=== PATIENT | male | born 1950 | race Caucasian/White ===

== ENCOUNTER 2019-04-11 08:58 | Emergency (ER) | payer OTHER ==
[2019-04-11] MEDS ORDERED: Carvedilol 25 MG Tab PO ONE ×2 (09:36→09:37)
--- NOTE | 2019-04-11 09:40 | EDM.PDOC ---
ED HPI GENERAL MEDICAL PROBLEM - General Chief Complaint: General Stated Complaint: BECAME WEAK LIGHT HEADED NAUSA Time Seen by Provider: 04/11/19 09:20 Source of Information: Reports: Patient History Limitations: Reports: No Limitations - History of Present Illness INITIAL COMMENTS - FREE TEXT/NARRATIVE: 68-year-old male with known congestive heart failure and chronic atrial fibrillation, has a pacemaker defibrillator and [facility] and [facility]. He is under a lot of stress right now, he was packing and preparing to go down to [facility] for a consultation regarding his 's pancreatic cancer, lifted 50 pound bag of dog food and after carrying it in setting it down and became very lightheaded and short of breath for several minutes. After 45 minutes he was still feeling a little "woozy" so decided to get checked out before leaving town. No fevers or chills, no pain, no amnesia or loss of consciousness. No significant palpitations. - Related Data Allergies Allergy/AdvReac Type Severity Reaction Status Date / Time No Known Allergies Allergy Verified 04/11/19 09:07 Home Meds: Home Meds Amiodarone HCl [Pacerone] 200 mg PO DAILY 04/11/19 [History] Apixaban [Eliquis] 5 mg PO DAILY 04/11/19 [History] Aspirin 81 mg PO DAILY 04/11/19 [History] Carvedilol 50 mg PO BID 04/11/19 [History] Cholecalciferol (Vitamin D3) [Vitamin D3] 1,000 unit PO DAILY 04/11/19 [History] Fish Oil/[place]-3 Fatty Acids [Fish Oil 1,000 MG] 1 gm PO DAILY 04/11/19 [History ] Furosemide 80 mg PO DAILY 04/11/19 [History] Furosemide [Lasix] 40 mg PO BEDTIME 04/11/19 [History] Magnesium 400 mg PO ASDIRECTED 04/11/19 [History] Omeprazole 40 mg PO BID 04/11/19 [History] Sacubitril/Valsartan [Entresto 24 mg-26 mg Tablet] 1 tab PO BID 04/11/19 [ History] Sertraline HCl 100 mg PO DAILY 04/11/19 [History] Spironolactone [Aldactone] 50 mg PO DAILY 04/11/19 [History] atorvaSTATin [Lipitor] 20 mg PO BEDTIME 04/11/19 [History] Social & Family History - Tobacco Use Smoking Status *Q: Heavy Tobacco Smoker Years of Tobacco use: 50 Packs/Tins Daily: 0.2 - Caffeine Use Caffeine Use: Reports: Coffee - Recreational Drug Use Recreational Drug Use: No ED ROS GENERAL - Review of Systems Review Of Systems: See Below Constitutional: Denies: Chills HEENT: Denies: Vision Change Respiratory: Reports: Shortness of Breath Cardiovascular: Reports: Lightheadedness. Denies: Chest Pain, Palpitations Endocrine: Reports: Fatigue GI/Abdominal: Reports: Nausea. Denies: Abdominal Pain, Vomiting : Reports: No Symptoms Skin: Reports: No Symptoms Neurological: Reports: Dizziness. Denies: Headache ED EXAM, GENERAL - Physical Exam Exam: See Below Exam Limited By: Intoxication General Appearance: Alert, No Apparent Distress Eye Exam: Bilateral Eye: Normal Inspection Respiratory/Chest: No Respiratory Distress, Lungs Clear Cardiovascular: Regular Rate, Rhythm, Extra Beats (Occasional ectopic beats heard correlating with PVCs on the monitor) GI/Abdominal: Soft, Non-Tender Extremities: Normal Inspection. No: Pedal Edema Neurological: Alert, Oriented, No Motor/Sensory Deficits Psychiatric: Normal Affect, Normal Mood Skin Exam: Warm, Dry Course - Vital Signs Last Recorded V/S: Last Vital Signs Temp 97 F 04/11/19 09:06 Pulse 62 04/11/19 09:49 Resp 17 04/11/19 09:06 BP 129/64 04/11/19 09:49 Pulse Ox 97 04/11/19 09:06 - Orders/Labs/Meds Meds: Medications Discontinued Medications Generic Name Dose Route Start Last Admin Trade Name Diego PRN Reason Stop Dose Admin Carvedilol 25 mg 04/11/19 09:36 04/11/19 09:49 Coreg PO 04/11/19 09:37 25 mg ONETIME ONE Administration Carvedilol 25 mg 04/11/19 09:37 04/11/19 09:49 Coreg PO 04/11/19 09:38 25 mg ONETIME ONE Administration - Re-Assessments/Exams Free Text/Narrative Re-Assessment/Exam: 04/11/19 09:38 Patient was placed on laboratory monitor for 15 minutes and is in a sinus rhythm with occasional PVCs. Explaining her syncopal episodes due to increased chest pressure from carrying heavy objects, and the likelihood that this was the event. With his recent complete cardiac workup including echocardiogram no workup necessary at this time. He did run out of his carvedilol 2 days ago so he was given 50 mg orally prior to discharge. He is normally on 50 mg twice daily. He is hoping this will come in the mail today before he leaves for the [facility] for his 's referral. Departure - Departure Time of Disposition: 09:53 Disposition: Home, Self-Care 01 Condition: Good Clinical Impression: Vasovagal near-syncope - Discharge Information Instructions: Near-Syncope Referrals: Maribel Kimball MD [Primary Care Provider] - Forms: ED Department Discharge Care Plan Goals: Continue your current medications. Recheck at any time if symptoms are recurring and persistent.
== END 2019-04-11 09:53 | disposition home or self-care (01) ==
LOC: JP.ED 08:58
DX: R55 Syncope and collapse (principal); I50.9 Heart failure, unspecified; I48.2 Chronic atrial fibrillation; F17.210 Nicotine dependence, cigarettes, uncomplicated; Z95.0 Presence of cardiac pacemaker; Z79.899 Other long term (current) drug therapy; Z79.01 Long term (current) use of anticoagulants; Z79.82 Long term (current) use of aspirin
CPT/HCPCS: 99283; A9270

== ENCOUNTER 2019-05-20 16:03 | Emergency (ER) | payer OTHER ==
--- NOTE | 2019-05-20 16:57 | EDM.PDOC ---
<Crescencio Mitchell - Last Filed: 05/20/19 18:46> ED HPI GENERAL MEDICAL PROBLEM - General Chief Complaint: General Stated Complaint: FALL Time Seen by Provider: 05/20/19 18:06 - Related Data Allergies Allergy/AdvReac Type Severity Reaction Status Date / Time No Known Allergies Allergy Verified 05/20/19 16:44 Home Meds: Home Meds Amiodarone HCl [Pacerone] 200 mg PO DAILY 04/11/19 [History] Apixaban [Eliquis] 5 mg PO BID 04/11/19 [History] Aspirin 81 mg PO DAILY 04/11/19 [History] Carvedilol 50 mg PO DAILY 04/11/19 [History] Cholecalciferol (Vitamin D3) [Vitamin D3] 1,000 unit PO DAILY 04/11/19 [History] Fish Oil/[place]-3 Fatty Acids [Fish Oil 1,000 MG] 1 gm PO DAILY 04/11/19 [History ] Furosemide 100 mg PO DAILY 04/11/19 [History] Furosemide [Lasix] 50 mg PO BEDTIME 04/11/19 [History] Magnesium 400 mg PO ASDIRECTED 04/11/19 [History] Omeprazole 40 mg PO BID 04/11/19 [History] Sacubitril/Valsartan [Entresto 24 mg-26 mg Tablet] 1 tab PO BID 04/11/19 [ History] Sertraline HCl 100 mg PO DAILY 04/11/19 [History] Spironolactone [Aldactone] 100 mg PO BID 04/11/19 [History] Course - Vital Signs Last Recorded V/S: Last Vital Signs Temp 35.9 C 05/20/19 16:50 Pulse 59 L 05/20/19 18:34 Resp 12 05/20/19 18:34 BP 136/76 05/20/19 18:34 Pulse Ox 98 05/20/19 18:34 - Orders/Labs/Meds Labs: Laboratory Tests 05/20/19 05/20/19 05/20/19 Range/Units 17:32 17:32 17:32 WBC 7.4 (4.5-11.0) K/uL RBC 3.95 L (4.30-5.90) M/uL Hgb 11.9 L (12.0-15.0) g/dL Hct 37.3 L (40.0-54.0) % MCV 94 (80-98) fL MCH 30 (27-31) pg MCHC 32 (32-36) % Plt Count 111 L (150-400) K/uL Neut % (Auto) 74 H (36-66) % Lymph % (Auto) 14 L (24-44) % [place] % (Auto) 9 H (2-6) % Eos % (Auto) 3 (2-4) % Baso % (Auto) 1 (0-1) % PT 10.9 (9.5-12.0) sec INR 1.01 (0.80-1.20) Sodium 135 L (140-148) mmol/L Potassium 4.2 (3.6-5.2) mmol/L Chloride 99 L (100-108) mmol/L Carbon Dioxide 26 (21-32) mmol/L Anion Gap 14.2 H (5.0-14.0) mmol/L BUN 14 (7-18) mg/dL Creatinine 1.3 (0.8-1.3) mg/dL Est Cr Clr Drug Dosing 50.42 mL/min Estimated GFR (MDRD) 54 L (>60) Glucose 84 (74-106) mg/dL Calcium 8.8 (8.5-10.1) mg/dL - Radiology Interpretation Free Text/Narrative:: CT head-neg CT facial bones-L infraorbital blow out fx without entrapment, possible nasal fx CT Results Date: 05/20/19 Departure - Departure Time of Disposition: 18:55 Disposition: Home, Self-Care 01 Clinical Impression: Diplopia Head injury Qualifiers: Encounter type: initial encounter Qualified Code(s): S09.90XA - Unspecified injury of head, initial encounter Fall Qualifiers: Encounter type: initial encounter Qualified Code(s): W19.XXXA - Unspecified fall, initial encounter Orbital floor fracture Qualifiers: Encounter type: initial encounter Fracture type: closed Laterality: left Qualified Code(s): S02.32XA - Fracture of orbital floor, left side, initial encounter for closed fracture Clinical Impression: (Ruled Out): Maxillary fracture - Discharge Information *PRESCRIPTION DRUG MONITORING PROGRAM REVIEWED*: No *COPY OF PRESCRIPTION DRUG MONITORING REPORT IN PATIENT RENNY: No Instructions: Orbital Floor Fracture With Entrapment, Head Injury, Adult, Easy- to-Read, Diplopia Referrals: PCP,None [Primary Care Provider] - Forms: ED Department Discharge Additional Instructions: Take acetaminophen up to 1000 mg every 6 hrs as needed for pain relief. [facility] and take the discs along of your CT facial and CT head studies. No driving due to your double vision. Continue your usual medications. <Helena Perez - Last Filed: 05/29/19 18:48> ED HPI GENERAL MEDICAL PROBLEM - General Source of Information: Reports: Patient - History of Present Illness INITIAL COMMENTS - FREE TEXT/NARRATIVE: 69 years old male patient presented with a chief complaint of fall. The patient choked on his drink and started coughing hard then lost his balance and fell down. Hit his head to the cement floor as well as his face. He doesn't think he lost consciousness. He is on liquids for A. fib. Complaining of mild headache and pain of the left side of the face also some nosebleed. Denies any visual changes. Denies any neck pain or back pain denies any chest pain or shortness breath denies any abdominal pain diarrhea. Denies any urinary symptom. Denies any focal weakness or numbness anywhere. No loss control of urine or stool. No bleeding anywhere else. He is up-to-date for his tetanus immunization. face Pain Score (Numeric/FACES): 1 Past Medical History Cardiovascular History: Reports: Afib, Bypass, Heart Failure, High Cholesterol, Hypertension, Pacemaker Social & Family History - Tobacco Use Smoking Status *Q: Current Every Day Smoker Years of Tobacco use: 50 Packs/Tins Daily: 0.5 - Caffeine Use Caffeine Use: Reports: Coffee - Recreational Drug Use Recreational Drug Use: No ED ROS GENERAL - Review of Systems Review Of Systems: ROS reveals no pertinent complaints other than HPI. ED EXAM, GENERAL - Physical Exam Exam: See Below Exam Limited By: No Limitations General Appearance: Alert, WD/WN, No Apparent Distress, Anxious Ears: Normal External Exam Nose: Normal Inspection, Normal Mucosa (minimal nosebleeds from the left nosetril) Head: Normocephalic, Facial Tenderness Neck: Normal Inspection, Supple, Non-Tender, Full Range of Motion. No: Tender Lateral, Tender Midline Respiratory/Chest: No Respiratory Distress, Lungs Clear, Normal Breath Sounds, No Accessory Muscle Use, Chest Non-Tender. No: Respiratory Distress, Decreased Breath Sounds, Crackles, Rales, Rhonchi, Wheezing Cardiovascular: Normal Peripheral Pulses, Regular Rate, Rhythm. No: Bradycardia , Tachycardia Back Exam: Normal Inspection, Full Range of Motion. No: CVA Tenderness (R), Muscle Spasm, Paraspinal Tenderness, Vertebral Tenderness Extremities: Normal Inspection, Normal Range of Motion, Non-Tender Neurological: Alert, Oriented, CN II-XII Intact, Normal Cognition, Normal Gait, Normal Reflexes, No Motor/Sensory Deficits Psychiatric: Normal Affect, Normal Mood. No: Depressed Mood, Flat Affect Skin Exam: Warm, Dry (contusion of the left side of his forehead and left zygomatic arch. No bleeding) Course - Orders/Labs/Meds Labs: Laboratory Tests 05/20/19 05/20/19 05/20/19 Range/Units 17:32 17:32 17:32 WBC 7.4 (4.5-11.0) K/uL RBC 3.95 L (4.30-5.90) M/uL Hgb 11.9 L (12.0-15.0) g/dL Hct 37.3 L (40.0-54.0) % MCV 94 (80-98) fL MCH 30 (27-31) pg MCHC 32 (32-36) % Plt Count 111 L (150-400) K/uL Neut % (Auto) 74 H (36-66) % Lymph % (Auto) 14 L (24-44) % [place] % (Auto) 9 H (2-6) % Eos % (Auto) 3 (2-4) % Baso % (Auto) 1 (0-1) % PT 10.9 (9.5-12.0) sec INR 1.01 (0.80-1.20) Sodium 135 L (140-148) mmol/L Potassium 4.2 (3.6-5.2) mmol/L Chloride 99 L (100-108) mmol/L Carbon Dioxide 26 (21-32) mmol/L Anion Gap 14.2 H (5.0-14.0) mmol/L BUN 14 (7-18) mg/dL Creatinine 1.3 (0.8-1.3) mg/dL Est Cr Clr Drug Dosing 50.42 mL/min Estimated GFR (MDRD) 54 L (>60) Glucose 84 (74-106) mg/dL Calcium 8.8 (8.5-10.1) mg/dL - Re-Assessments/Exams Free Text/Narrative Re-Assessment/Exam: 05/20/19 17:30 patient was seen and examined shortly after arrival. Stable. Provided with nose clamp for his nasal bleeding. Lab and imaging still pending. Patient care transferred to Dr. deborah Mitchell at time of shift exchange in a stable condition for further management and disposition. Departure - Departure Time of Disposition: 18:10 Condition: Good - Discharge Information *PRESCRIPTION DRUG MONITORING PROGRAM REVIEWED*: Not Applicable *COPY OF PRESCRIPTION DRUG MONITORING REPORT IN PATIENT RENNY: Not Applicable
--- NOTE | 2019-05-20 18:38 | CRLCT ---
INDICATION: Facial injury COMPARISON: None available TECHNIQUE: CT examination of the facial bones is performed without contrast enhancement using spiral technique. 2-mm thick axial, coronal and sagittal sections were obtained from the data. Please note that all CT scans at this facility use dose modulation, iterative reconstruction, and/or weight-based dosing when appropriate to reduce radiation dose to as low as reasonably achievable. FINDINGS: There is an acute, comminuted, left lateral orbital floor blowout fracture with prominent inferior angulation of the major orbital floor fragment and mild herniation of intraorbital fat into the maxillary sinus. The fracture line extends anteriorly and medially to reach the medial aspect of the left inferior orbital rim. There is mild thickening of the left inferior rectus muscle consistent with a contusion. The inferior rectus muscle is located medial to the fracture, and there is no sign of herniation and certainly no signs of entrapment. There is no sign of intraorbital hematoma, either intraconal or extraconal. There is a mild amount of gas located along the lateral edge of the extraconal orbit, extending superiorly from the fracture of the orbital floor. There is mild left supraorbital and frontal soft tissue swelling extending into the left upper eyelid. There is gas within the lateral aspect of the left upper eyelid, extending from the lateral extraconal orbit. The left maxillary sinus is largely filled with blood, related to the fracture. There is prominent gas in the left lower eyelid extending over the anterior wall of the left maxillary sinus, resulting in puffiness of this region. There is no sign of additional facial fracture on today`s study. The right orbit, zygomatic arches, nasal bones, right maxilla, and mandible are normal in appearance. There is mild mucosal thickening of several left ethmoid air cells, probably blood from the adjacent maxillary sinus. There is a mucous retention cyst in the inferior right maxillary sinus. A mucous retention cyst is seen in the medial left frontal ethmoidal recess. The rest of the paranasal sinuses are clear. The mastoids are clear. The airway structures are normal in appearance. IMPRESSION: Acute, comminuted, left orbital floor fracture with mild herniation of left orbital fat into the superior left maxillary sinus. The fracture extends to the medial left inferior orbital rim. Mild contusion of the left inferior rectus muscle with no sign of inferior displacement into the maxillary sinus and no sign of entrapment. No sign of any intraorbital hematoma related to the fracture, either intraconal or extraconal. Mild air in the lateral and inferior left orbit, with prominent air in the left lower eyelid and mild air in the lateral left upper eyelid. Left maxillary sinus largely filled with blood. No additional facial fractures are evident. Please note that all CT scans at this facility use dose modulation, iterative reconstruction, and/or weight-based dosing when appropriate to reduce radiation dose to as low as reasonably achievable. Dictated by Abner Loyd MD @ May 20 2019 6:22PM Signed by Dr. Abner Loyd @ May 20 2019 6:36PM
--- NOTE | 2019-05-20 18:42 | CRLCT ---
INDICATION: Status post head trauma. COMPARISON: None available. TECHNIQUE: CT examination of the head was performed with 3 mm thick axial sections without intravenous contrast. Images were obtained from the vertex of the skull through the skull base, and I examined the images with the brain and bone windows. Please note that all CT scans at this facility use dose modulation, iterative reconstruction, and/or weight-based dosing when appropriate to reduce radiation dose to as low as reasonably achievable. FINDINGS: : The brain is normal in appearance for the patient`s age on today`s study, with no sign of mass lesion, mass effect, hemorrhage, or edema. There is moderate dilatation of the ventricles and sulci representing moderate, age-appropriate atrophy. The extra-axial CSF spaces are slightly more prominent on the left than the right, a variant of normal. There is swelling of the left supraorbital region extending over the left orbits. There is gas in the lateral left orbit as discussed on the accompanying CT of the facial bones. The left superior maxillary sinus is completely opacified, consistent with the left inferior orbital blowout fracture seen on the accompanying CT of the facial bones. There is patchy mucosal thickening in the left ethmoid consistent with hemorrhage from the maxillary sinus. The rest of the paranasal sinuses better seen are clear. The mastoids are clear. The osseous structures are normal in their appearance with no sign of abnormality in the skull base or calvarium. The findings were discussed with Dr. Mitchell at 1840 hours on 05/20/2019. IMPRESSION: Normal noncontrast CT of the head for the patient`s age. Moderate, age-appropriate atrophy. No sign of closed-head injury. Left orbital trauma and fluid in the superior left maxillary sinus as described on the accompanying CT of the facial bones. Please note that all CT scans at this facility use dose modulation, iterative reconstruction, and/or weight-based dosing when appropriate to reduce radiation dose to as low as reasonably achievable. Dictated by Abner Loyd MD @ May 20 2019 6:23PM Signed by Dr. Abner Loyd @ May 20 2019 6:42PM
== END 2019-05-20 19:04 | disposition home or self-care (01) ==
LOC: JP.ED 16:03
DX: S02.32XA Fracture of orbital floor, left side, initial encounter for closed fracture (principal); S09.90XA Unspecified injury of head, initial encounter; H53.2 Diplopia; I48.91 Unspecified atrial fibrillation; I11.0 Hypertensive heart disease with heart failure; I50.9 Heart failure, unspecified; E78.00 Pure hypercholesterolemia, unspecified; F17.210 Nicotine dependence, cigarettes, uncomplicated; Z79.82 Long term (current) use of aspirin; Z79.01 Long term (current) use of anticoagulants; Z79.899 Other long term (current) drug therapy; Z95.0 Presence of cardiac pacemaker; W18.39XA Other fall on same level, initial encounter
CPT/HCPCS: 36415; 70450; 70486; 80048; 85025; 85610; 99283; 99284-25

== ENCOUNTER 2020-05-02 08:07 | Emergency (ER) | payer OTHER ==
[2020-05-02] MEDS ORDERED: Sodium Chloride 0.9% 10 ML Syringe FLUSH PRN (08:41)
--- NOTE | 2020-05-02 08:47 | EDM.PDOC ---
<Soco Calabrese - Last Filed: 05/02/20 14:29> ED HPI GENERAL MEDICAL PROBLEM - General Chief Complaint: General Stated Complaint: MEDICAL VIA NORTH Time Seen by Provider: 05/02/20 08:30 Source of Information: Reports: Patient, EMS, Old Records, RN History Limitations: Reports: No Limitations - History of Present Illness INITIAL COMMENTS - FREE TEXT/NARRATIVE: Teo is a 70 yo male who presented to the ED via EMS for c/o diaphoresis, nausea, and dizziness. He was sitting in his chair this morning about 6:00-6:30 playing with his dog when he had sudden onset of severe diaphoresis and dizziness followed by nausea. He states that the symptoms were present until after EMS arrived around 6:30-7:00. Teo states that he had taken his morning medications and had eaten breakfast prior to onset of symptoms. EMS blood glucose 113. stat blood glucose upon arrival 110. He is feeling better here. Teo states that he has been feeling lightheaded with position changes a few times over the past few days and in the past. he was taking his blood pressures at home yesterday when he was symptomatic and had 110s SBPs. He states he notices it when he hasn't been drinking enough water but states that he feels his hydration is good right now and been drinking plenty of fluids. Denies any diarrhea, pain, ill symptoms, or ill contacts. Onset: Sudden Onset Date: 05/02/20 Duration: Hour(s): (3) - Related Data Allergies Allergy/AdvReac Type Severity Reaction Status Date / Time [id number] Reductase AdvReac Other Verified 05/02/20 08:10 Inhibitor Home Meds: Home Meds Amiodarone HCl [Pacerone] 200 mg PO DAILY 04/11/19 [History] Apixaban [Eliquis] 5 mg PO BID 04/11/19 [History] Aspirin 81 mg PO DAILY 04/11/19 [History] Cholecalciferol (Vitamin D3) [Vitamin D3] 1,000 unit PO DAILY 04/11/19 [History] Fish Oil/Mcandrews-3 Fatty Acids [Fish Oil 1,000 MG] 1 gm PO DAILY 04/11/19 [History] Furosemide 50 mg PO DAILY 04/11/19 [History] Furosemide [Lasix] 25 mg PO BEDTIME 04/11/19 [History] Magnesium 400 mg PO ASDIRECTED 04/11/19 [History] Omeprazole 40 mg PO BID 04/11/19 [History] Sacubitril/Valsartan [Entresto 24 mg-26 mg Tablet] 1 tab PO BID 04/11/19 [History] Sertraline HCl 100 mg PO DAILY 04/11/19 [History] Spironolactone [Aldactone] 100 mg PO BID 04/11/19 [History] carvediloL [Carvedilol] 25 mg PO BID 04/11/19 [History] Past Medical History HEENT History: Reports: Impaired Vision Cardiovascular History: Reports: Afib, Bypass, Heart Failure, High Cholesterol, Hypertension, Pacemaker, Stents Gastrointestinal History: Reports: GERD Musculoskeletal History: Reports: Osteoarthritis Psychiatric History: Reports: Depression, PTSD Endocrine/Metabolic History: Reports: Obesity/BMI 30+ Hematologic History: Reports: Anticoagulation Therapy - Past Surgical History Head Surgeries/Procedures: Reports: None HEENT Surgical History: Reports: Cataract Surgery Cardiovascular Surgical History: Reports: Coronary Artery Bypass, Coronary Artery Stent GI Surgical History: Reports: Appendectomy, Hernia Repair/Other Musculoskeletal Surgical History: Reports: None Dermatological Surgical History: Reports: None Social & Family History - Tobacco Use Smoking Status *Q: Current Every Day Smoker Years of Tobacco use: 50 Packs/Tins Daily: 0.5 Used Tobacco, but Quit: No Second Hand Smoke Exposure: No - Caffeine Use Caffeine Use: Reports: Coffee - Recreational Drug Use Recreational Drug Use: No ED ROS GENERAL - Review of Systems Review Of Systems: See Below Constitutional: Reports: Diaphoresis HEENT: Reports: No Symptoms Respiratory: Reports: No Symptoms Cardiovascular: Reports: Lightheadedness Endocrine: Reports: No Symptoms GI/Abdominal: Reports: No Symptoms : Reports: No Symptoms Musculoskeletal: Reports: No Symptoms Skin: Reports: No Symptoms Neurological: Reports: Dizziness Psychiatric: Reports: No Symptoms Hematologic/Lymphatic: Reports: No Symptoms Immunologic: Reports: No Symptoms ED EXAM, GENERAL - Physical Exam Exam: See Below Exam Limited By: No Limitations General Appearance: Alert, No Apparent Distress Ears: Normal External Exam, Hearing Grossly Normal Nose: Normal Inspection, Normal Mucosa Head: Atraumatic, Normocephalic Neck: Normal Inspection, Supple, Non-Tender. No: Lymphadenopathy (R), Lymphadenopathy (L), Thyromegaly Respiratory/Chest: No Respiratory Distress, Lungs Clear, Normal Breath Sounds, No Accessory Muscle Use, Chest Non-Tender Cardiovascular: Regular Rate, Rhythm, Other (paced rhthym, mitral valve murmur ) Peripheral Pulses: 2+: Radial (L), Radial (R), Dorsalis Pedis (L), Dorsalis Pedis (R) GI/Abdominal: Normal Bowel Sounds, Soft, Non-Tender (Male) Exam: Deferred Rectal (Males) Exam: Deferred Back Exam: Normal Inspection, Full Range of Motion Extremities: Normal Inspection, Normal Range of Motion, No Pedal Edema, Normal Capillary Refill Neurological: Alert, Oriented, Normal Cognition Psychiatric: Normal Affect, Normal Mood Skin Exam: Warm, Dry Lymphatic: No Adenopathy EKG INTERPRETATION EKG Interpretation Comments: paced rhythm. no acute concerns Course - Re-Assessments/Exams Free Text/Narrative Re-Assessment/Exam: 05/02/20 09:45 Patient has an upcoming appointment with cardiology on Wednesday in [place]. Due to his symptoms today, we will proceed with an ECHO. Free Text/Narrative Re-Assessment/Exam: 05/02/20 11:25 patient does not want lunch at this time. He expressed concerns about the possibility of taking too much acetaminophen (for hip pain). An acetaminophen level has been or ordered. Free Text/Narrative Re-Assessment/Exam: 05/02/20 13:37 ECHO completed. sent off for official reading/ Departure - Departure Time of Disposition: 13:37 Disposition: Home, Self-Care 01 Condition: Good Clinical Impression: Vaso vagal episode, Hypotension due to medication - Discharge Information *PRESCRIPTION DRUG MONITORING PROGRAM REVIEWED*: No *COPY OF PRESCRIPTION DRUG MONITORING REPORT IN PATIENT RENNY: No Instructions: Near-Syncope, [id number] Referrals: PCP,None [Primary Care Provider] - Forms: ED Department Discharge Additional Instructions: Your ECHO results are pending. We can call you when those are available. Your superintendent drilling and production should have access to the results on Wednesday. Make sure you are staying hydrated. Recommend taking only 25 mg of your carvedilol (coreg) daily, instead of the 50 mg daily until consult with your superintendent drilling and production on Wednesday. This should help your blood pressure. Call or return with any worsening of symptoms, chest pains, difficulty breathing, or any other concerns. Sepsis Event Note (ED) - Evaluation Sepsis Screening Result: No Definite Risk - Assessment/Plan Plan: discharged home. will call with echo results. decreased coreg from 50mg to 25 mg and keep your appt with cardiology on wednesday in [place] <Juan ManuelJyoti - Last Filed: 05/05/20 07:32> Course - Vital Signs Last Recorded V/S: Last Vital Signs Temp 35.4 C L 05/02/20 08:16 Pulse 60 05/02/20 13:14 Resp 16 05/02/20 13:14 BP 116/62 05/02/20 13:14 Pulse Ox 95 05/02/20 13:14 Orthostatic Blood Pressure [ 115/58 Standing] Orthostatic Blood Pressure [ 108/59 Sitting] Orthostatic Blood Pressure [ 98/53 Supine] - Orders/Labs/Meds Labs: Laboratory Tests 05/02/20 05/02/20 05/02/20 Range/Units 08:23 09:00 09:00 WBC 7.1 (4.5-11.0) K/uL RBC 4.23 L (4.30-5.90) M/uL Hgb 12.8 (12.0-15.0) g/dL Hct 39.3 L (40.0-54.0) % MCV 93 (80-98) fL MCH 30 (27-31) pg MCHC 33 (32-36) % Plt Count 140 L (150-400) K/uL Neut % (Auto) 76 H (36-66) % Lymph % (Auto) 11 L (24-44) % [place] % (Auto) 9 H (2-6) % Eos % (Auto) 4 (2-4) % Baso % (Auto) 1 (0-1) % Sodium 138 L (140-148) mmol/L Potassium 4.0 (3.6-5.2) mmol/L Chloride 102 (100-108) mmol/L Carbon Dioxide 27 (21-32) mmol/L Anion Gap 13.0 (5.0-14.0) mmol/L BUN 19 H (7-18) mg/dL Creatinine 1.4 H (0.8-1.3) mg/dL Est Cr Clr Drug Dosing 47.69 mL/min Estimated GFR (MDRD) 50 L (>60) Glucose 118 H (74-106) mg/dL POC Glucose 110 H (74-106) MG/DL Calcium 8.4 L (8.5-10.1) mg/dL Magnesium 2.3 (1.8-2.4) mg/dL Total Bilirubin 0.3 (0.2-1.0) mg/dL AST 15 (15-37) U/L ALT 28 (12-78) U/L Alkaline Phosphatase 52 (46-116) U/L Troponin I < 0.017 (0.000-0.056) ng/mL NT-Pro-B Natriuret Pep 820 H (5-125) pg/mL Total Protein 7.3 (6.4-8.2) g/dL Albumin 3.5 (3.4-5.0) g/dL Globulin 3.8 H (2.3-3.5) g/dL Albumin/Globulin Ratio 0.9 L (1.2-2.2) Urine Color (YELLOW) Urine Appearance (CLEAR) Urine pH (5.0-8.0) Ur Specific [place] (1.008-1.030) Urine Protein (NEGATIVE) mg/dL Urine Glucose (UA) (NEGATIVE) mg/dL Urine Ketones (NEGATIVE) mg/dL Urine Occult Blood (NEGATIVE) Urine Nitrite (NEGATIVE) Urine Bilirubin (NEGATIVE) Urine Urobilinogen (0.2-1.0) EU/dL Ur Leukocyte Esterase (NEGATIVE) Urine RBC (0-5) Urine WBC (0-5) Ur Epithelial Cells Amorphous Sediment Urine Bacteria Urine Mucus Acetaminophen (10.0-30.0) ug/mL 05/02/20 05/02/20 05/02/20 Range/Units 09:48 11:13 11:20 WBC (4.5-11.0) K/uL RBC (4.30-5.90) M/uL Hgb (12.0-15.0) g/dL Hct (40.0-54.0) % MCV (80-98) fL MCH (27-31) pg MCHC (32-36) % Plt Count (150-400) K/uL Neut % (Auto) (36-66) % Lymph % (Auto) (24-44) % [place] % (Auto) (2-6) % Eos % (Auto) (2-4) % Baso % (Auto) (0-1) % Sodium (140-148) mmol/L Potassium (3.6-5.2) mmol/L Chloride (100-108) mmol/L Carbon Dioxide (21-32) mmol/L Anion Gap (5.0-14.0) mmol/L BUN (7-18) mg/dL Creatinine (0.8-1.3) mg/dL Est Cr Clr Drug Dosing mL/min Estimated GFR (MDRD) (>60) Glucose (74-106) mg/dL POC Glucose (74-106) MG/DL Calcium (8.5-10.1) mg/dL Magnesium (1.8-2.4) mg/dL Total Bilirubin (0.2-1.0) mg/dL AST (15-37) U/L ALT (12-78) U/L Alkaline Phosphatase (46-116) U/L Troponin I < 0.017 (0.000-0.056) ng/mL NT-Pro-B Natriuret Pep (5-125) pg/mL Total Protein (6.4-8.2) g/dL Albumin (3.4-5.0) g/dL Globulin (2.3-3.5) g/dL Albumin/Globulin Ratio (1.2-2.2) Urine Color Yellow (YELLOW) Urine Appearance Clear (CLEAR) Urine pH 7.0 (5.0-8.0) Ur Specific [place] 1.020 (1.008-1.030) Urine Protein Negative (NEGATIVE) mg/dL Urine Glucose (UA) Negative (NEGATIVE) mg/dL Urine Ketones Negative (NEGATIVE) mg/dL Urine Occult Blood Trace-intact H (NEGATIVE) Urine Nitrite Negative (NEGATIVE) Urine Bilirubin Negative (NEGATIVE) Urine Urobilinogen 0.2 (0.2-1.0) EU/dL Ur Leukocyte Esterase Negative (NEGATIVE) Urine RBC 0-5 (0-5) Urine WBC Not seen (0-5) Ur Epithelial Cells Not seen Amorphous Sediment Not seen Urine Bacteria Not seen Urine Mucus Not seen Acetaminophen 0.0 L (10.0-30.0) ug/mL Meds: Medications Discontinued Medications Generic Name Dose Route Start Last Admin Trade Name Freq PRN Reason Stop Dose Admin Sodium Chloride 10 ml 05/02/20 08:41 05/02/20 12:13 Saline Flush FLUSH 10 ml ASDIRECTED PRN Administration Keep Vein Open - Re-Assessments/Exams Free Text/Narrative Re-Assessment/Exam: 05/05/20 07:32 the echo results from cardiology did not show any acute changes.
--- NOTE | 2020-05-02 11:21 | CR ---
CHEST: Portable 05/02/2020 at 0903 CLINICAL HISTORY:Dizziness and weakness COMPARISON:2011 FINDINGS: The heart is moderately enlarged. There has been previous sternotomy. Patient has a permanent cardiac pacer/defibrillator. There is mild vascular cephalization. There appears to be a minimal right effusion. 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
== END 2020-05-02 13:52 | disposition home or self-care (01) ==
LOC: JP.ED 08:07
DX: I95.2 Hypotension due to drugs (principal); I48.91 Unspecified atrial fibrillation; I11.0 Hypertensive heart disease with heart failure; I50.9 Heart failure, unspecified; K21.9 Gastro-esophageal reflux disease without esophagitis; M19.90 Unspecified osteoarthritis, unspecified site; F32.9 Major depressive disorder, single episode, unspecified; F17.210 Nicotine dependence, cigarettes, uncomplicated; E66.9 Obesity, unspecified; Z68.34 Body mass index [BMI] 34.0-34.9, adult; Z79.82 Long term (current) use of aspirin; Z79.01 Long term (current) use of anticoagulants; Z79.899 Other long term (current) drug therapy; Z88.8 Allergy status to other drugs, medicaments and biological substances
CPT/HCPCS: 36415; 71045; 71045-26; 80053; 80307; 81001; 82962; 83735; 83880; 84484; 85025; 93005; 93306; 99285-25

== ENCOUNTER 2021-07-08 15:45 | Emergency (ER) | payer OTHER ==
--- NOTE | 2021-07-08 17:01 | EDM.PDOC ---
<Crescencio Mitchell - Last Filed: 07/08/21 19:01> ED HPI GENERAL MEDICAL PROBLEM - General Chief Complaint: Abdominal Pain Stated Complaint: UPPER ABD PAIN Time Seen by Provider: 07/08/21 16:10 - Related Data Allergies Allergy/AdvReac Type Severity Reaction Status Date / Time Cbsgich-Dfc-Gbd Reductase AdvReac Other Verified 07/08/21 15:56 Inhibitor Home Meds: Home Meds Amiodarone HCl [Pacerone] 100 mg PO DAILY 04/11/19 [History] Apixaban [Eliquis] 5 mg PO BID 04/11/19 [History] Aspirin 81 mg PO DAILY 04/11/19 [History] Cholecalciferol (Vitamin D3) [Vitamin D3] 1,000 unit PO DAILY 04/11/19 [History] Fish Oil/Turner-3 Fatty Acids [Fish Oil 1,000 MG] 1 gm PO DAILY 04/11/19 [History] Furosemide 50 mg PO DAILY 04/11/19 [History] Furosemide [Lasix] 25 mg PO BEDTIME 04/11/19 [History] Omeprazole 40 mg PO BID 04/11/19 [History] Sacubitril/Valsartan [Entresto 24 mg-26 mg Tablet] 1 tab PO BID 04/11/19 [History] Sertraline HCl 100 mg PO DAILY 04/11/19 [History] Spironolactone [Aldactone] 100 mg PO BID 04/11/19 [History] carvediloL [Carvedilol] 12.5 mg PO BID 04/11/19 [History] Famotidine 20 mg PO BEDTIME #30 tab 07/08/21 [Rx] ED ROS GENERAL - Review of Systems GI/Abdominal: Reports: Other (stools are a bit on the hard side lately) ED EXAM, GENERAL - Physical Exam GI/Abdominal: Tender, Other (has an umbilical hernia present, but it is nontender.) Course - Radiology Interpretation Free Text/Narrative:: CT abd/pelvis with IV contrast- IMPRESSION: 1. Small fat-containing umbilical hernia with increased fat stranding which may be indicative of strangulation. 2. Cholelithiasis. No evidence for acute cholecystitis. 3. Colonic diverticulosis, no evidence for diverticulitis. 4. Small infrarenal abdominal aortic aneurysm measuring 32 mm. 5. Enlarged prostate. Please note that all CT scans at this facility use dose modulation, iterative reconstruction, and/or weight-based dosing when appropriate to reduce radiation dose to as low as reasonably achievable. Dictated by Jaxson Tomlinson MD @ 07/08/2021 6:47:37 PM - Re-Assessments/Exams Free Text/Narrative Re-Assessment/Exam: 07/08/21 19:01 GI cocktail po-epigastric pain is less Departure - Departure Time of Disposition: 19:11 Disposition: Home, Self-Care 01 Condition: Fair Clinical Impression: Gastritis Qualifiers: Gastritis type: unspecified gastritis Chronicity: acute Gastritis bleeding: without bleeding Qualified Code(s): K29.00 - Acute gastritis without bleeding Constipation Qualifiers: Constipation type: slow transit constipation Qualified Code(s): K59.01 - Slow transit constipation - Discharge Information *PRESCRIPTION DRUG MONITORING PROGRAM REVIEWED*: Not Applicable *COPY OF PRESCRIPTION DRUG MONITORING REPORT IN PATIENT RENNY: Not Applicable Prescriptions: Famotidine 20 mg PO BEDTIME #30 tab Instructions: Gastritis, Adult, [id number] Referrals: Maribel Kimball MD [Primary Care Provider] - Forms: ED Department Discharge Additional Instructions: Double the daily dose of your Metamucil. Take famotidine 20 mg at bedtime daily. Recheck with your provider in about a week. If you are still on a baby aspirin daily make sure you take it with a full meal to reduce the risk of injury to you r stomach. For further healing of your stomach you may take a dose of Maalox or Mylanta 30 ml after meals and at bedtime anytime you need to. <Alberto Fajardo - Last Filed: 07/09/21 12:30> ED HPI GENERAL MEDICAL PROBLEM - General Source of Information: Reports: Patient History Limitations: Reports: No Limitations - History of Present Illness INITIAL COMMENTS - FREE TEXT/NARRATIVE: 71-year-old patient was had some upper abdominal discomfort ever since 3 weeks ago when he was working on some type of a bobcat or lawnmower where he did persistent rotating at the waist using his upper arms to push levers and towards the end of the day developed an upper abdominal and lower chest discomfort with movement. Since that time he has persistent shortness of breath and pain with activity in the upper abdomen, worse with bending over. He did get an EGD yesterday to follow Gardner's esophagus at the [facility], discussed his symptoms with the doctor at the time and he recommended rechecking with his primary care, who recommended he come to the emergency room today. He has no symptoms currently but is convinced that if he went out and walked around briskly for a while he would redevelop with the upper abdominal discomfort. He also feels like his abdomen is "bloated" and somewhat distended. The pain does not radiate to his back, shoulders, neck, jaw or arms. He does have a significant cardiac history, he has had a three-vessel bypass "twice". These do not feel like cardiac symptoms to him. His appetite is unchanged, bowels are moving, and he is staying active. No fevers or chills, he is completely vaccinated for Covid. He does continue to smoke daily. Onset: Gradual Duration: Week(s): (3 weeks of symptoms) Location: Reports: Abdomen (Upper abdomen and lower anterior chest) Quality: Reports: Dull, Pressure Associated Symptoms: Reports: Chest Pain (Lower anterior chest pain, somewhat worse on the left), Shortness of Breath (Especially with activity). Denies: Cough, Diaphoresis, Nausea/Vomiting Bilateral Epigastric Pain Score (Numeric/FACES): 4 Past Medical History HEENT History: Reports: Impaired Vision Cardiovascular History: Reports: Afib, Bypass, Heart Failure, High Cholesterol, Hypertension, Pacemaker, Stents Gastrointestinal History: Reports: GERD Musculoskeletal History: Reports: Osteoarthritis Psychiatric History: Reports: Depression, PTSD Endocrine/Metabolic History: Reports: Obesity/BMI 30+ Hematologic History: Reports: Anticoagulation Therapy - Past Surgical History Head Surgeries/Procedures: Reports: None HEENT Surgical History: Reports: Cataract Surgery Cardiovascular Surgical History: Reports: Coronary Artery Bypass, Coronary Artery Stent GI Surgical History: Reports: Appendectomy, Hernia Repair/Other Musculoskeletal Surgical History: Reports: None Dermatological Surgical History: Reports: None Social & Family History - Tobacco Use Tobacco Use Status *Q: Light Tobacco User Years of Tobacco use: 55 Packs/Tins Daily: 0.5 - Caffeine Use Caffeine Use: Reports: Coffee - Recreational Drug Use Recreational Drug Use: No ED ROS GENERAL - Review of Systems Review Of Systems: See Below Constitutional: Denies: Fever, Chills, Malaise HEENT: Denies: Throat Pain, Vision Change Respiratory: Reports: Shortness of Breath (With activity). Denies: Pleuritic Chest Pain Cardiovascular: Reports: Chest Pain, Dyspnea on Exertion. Denies: Lightheadedness, Palpitations GI/Abdominal: Reports: Abdominal Pain. Denies: Constipation, Diarrhea, Decreased Appetite, Nausea, Vomiting : Reports: No Symptoms Musculoskeletal: Reports: Muscle Pain (Feels like muscle soreness in his upper abdomen) Skin: Denies: Pallor, Bruising, Rash Neurological: Reports: No Symptoms Psychiatric: Reports: No Symptoms ED EXAM, GENERAL - Physical Exam Exam: See Below Exam Limited By: No Limitations General Appearance: Alert, No Apparent Distress Eye Exam: Bilateral Eye: Normal Inspection Head: Atraumatic Neck: Supple, Non-Tender Respiratory/Chest: Lungs Clear, Chest Non-Tender Cardiovascular: Regular Rate, Rhythm, Tachycardia (Mild tachycardia with a rate of 110, regular rhythm) GI/Abdominal: Normal Bowel Sounds, Soft, Tender (Patient reacts with tenderness to palpation of the left upper quadrant, he has no pain on the chest wall but the abdomen is tender without guarding or rebound. I do not feel masses but he is obese) Extremities: Normal Inspection. No: Pedal Edema, Aramis's Sign, Leg Pain, Redness Neurological: Alert, Oriented, No Motor/Sensory Deficits Psychiatric: Normal Affect, Normal Mood Skin Exam: Warm, Dry Course - Vital Signs Last Recorded V/S: Last Vital Signs Temp 96.9 F 07/08/21 15:55 Pulse 110 H 07/08/21 15:55 Resp 20 07/08/21 15:55 BP 147/83 H 07/08/21 15:55 Pulse Ox 97 07/08/21 15:55 - Orders/Labs/Meds Labs: Laboratory Tests 07/08/21 07/08/21 07/08/21 Range/Units 16:40 16:40 16:40 WBC 8.6 (4.5-11.0) K/uL RBC 4.52 (4.30-5.90) M/uL Hgb 13.5 (12.0-15.0) g/dL Hct 39.9 L (40.0-54.0) % MCV 88 (80-98) fL MCH 30 (27-31) pg MCHC 34 (32-36) % Plt Count 160 (150-400) K/uL Neut % (Auto) 70.8 H (36-66) % Lymph % (Auto) 13.9 L (24-44) % [place] % (Auto) 11.1 H (2-6) % Eos % (Auto) 3.5 (2-4) % Baso % (Auto) 0.7 (0-1) % D-Dimer, Quantitative 442.78 (0.0-500.0) ng/mL Sodium 133 L (140-148) mmol/L Potassium 3.9 (3.6-5.2) mmol/L Chloride 99 L (100-108) mmol/L Carbon Dioxide 25 (21-32) mmol/L Anion Gap 12.9 (5.0-14.0) mmol/L BUN 18 (7-18) mg/dL Creatinine 1.4 H (0.8-1.3) mg/dL Est Cr Clr Drug Dosing 46.99 mL/min Estimated GFR (MDRD) 50 L (>60) Glucose 104 (74-106) mg/dL Calcium 8.7 (8.5-10.1) mg/dL Magnesium (1.8-2.4) mg/dL Total Bilirubin 0.5 D (0.2-1.0) mg/dL AST 12 L (15-37) U/L ALT 27 (12-78) U/L Alkaline Phosphatase 69 (46-116) U/L Troponin I < 0.017 (0.000-0.056) ng/mL Total Protein 7.4 (6.4-8.2) g/dL Albumin 3.6 (3.4-5.0) g/dL Globulin 3.8 H (2.3-3.5) g/dL Albumin/Globulin Ratio 1.0 L (1.2-2.2) Lipase 87 (73-393) U/L 07/08/21 Range/Units 16:40 WBC (4.5-11.0) K/uL RBC (4.30-5.90) M/uL Hgb (12.0-15.0) g/dL Hct (40.0-54.0) % MCV (80-98) fL MCH (27-31) pg MCHC (32-36) % Plt Count (150-400) K/uL Neut % (Auto) (36-66) % Lymph % (Auto) (24-44) % [place] % (Auto) (2-6) % Eos % (Auto) (2-4) % Baso % (Auto) (0-1) % D-Dimer, Quantitative (0.0-500.0) ng/mL Sodium (140-148) mmol/L Potassium (3.6-5.2) mmol/L Chloride (100-108) mmol/L Carbon Dioxide (21-32) mmol/L Anion Gap (5.0-14.0) mmol/L BUN (7-18) mg/dL Creatinine (0.8-1.3) mg/dL Est Cr Clr Drug Dosing mL/min Estimated GFR (MDRD) (>60) Glucose (74-106) mg/dL Calcium (8.5-10.1) mg/dL Magnesium 2.1 (1.8-2.4) mg/dL Total Bilirubin (0.2-1.0) mg/dL AST (15-37) U/L ALT (12-78) U/L Alkaline Phosphatase (46-116) U/L Troponin I (0.000-0.056) ng/mL Total Protein (6.4-8.2) g/dL Albumin (3.4-5.0) g/dL Globulin (2.3-3.5) g/dL Albumin/Globulin Ratio (1.2-2.2) Lipase (73-393) U/L Meds: Medications Discontinued Medications Generic Name Dose Route Start Last Admin Trade Name Freq PRN Reason Stop Dose Admin Al Hydroxide/Mg Hydroxide 15 0 ml 07/08/21 18:56 07/08/21 19:01 ml/ Lidocaine HCl 15 ml PO 07/08/21 18:57 15 ml ONETIME ONE Administration Famotidine 20 mg 07/08/21 19:15 07/08/21 19:19 Famotidine 20 Mg Tab PO 07/08/21 19:16 20 mg ONETIME ONE Administration Sodium Chloride 1,000 mls @ 1,000 mls/hr 07/08/21 17:45 07/08/21 18:04 Normal Saline IV 1,000 mls/hr ASDIRECTED HALLE Administration Sodium Chloride 80 mls @ 3 mls/sec 07/08/21 17:45 07/08/21 17:57 Normal Saline IV 3 mls/sec ASDIRECTED HALLE Administration Iopamidol 150 ml 07/08/21 17:45 07/08/21 17:57 Iopamidol 612 Mg/Ml 150 Ml Bottle IV 150 ml . DIRECTED HALLE Administration - Re-Assessments/Exams Free Text/Narrative Re-Assessment/Exam: 07/08/21 16:59 This presents as more of an abdominal or musculoskeletal pain rather than cardiac pain. A CBC, CMP, troponin were obtained and my intention I think is to run through the CT scan of the abdomen and pelvis with IV contrast to rule out diaphragmatic hernia, pulmonary issues or abdominal masses or abnormalities such as partial bowel obstruction. 07/08/21 17:40 Labs really were not helpful, lipase is normal, troponin is 0, and other than some mild renal insufficiency his labs are nonspecific. An IV was started and the patient was hydrated with normal saline while he was sent back for an IV enhanced contrast of the abdomen and pelvis. Sepsis Event Note (ED) - Evaluation Sepsis Screening Result: No Definite Risk
[2021-07-08] MEDS ORDERED: Sodium Chloride 0.9% 80 ML IV SCH (17:45)
[2021-07-08] MEDS ORDERED: Sodium Chloride 0.9% 1,000 ML IV SCH (17:45)
[2021-07-08] MEDS ORDERED: Iopamidol 612 MG/ML 150 ML Bottle IV SCH (17:45)
--- NOTE | 2021-07-08 18:50 | CRLCT ---
For Patients: As a result of the Century Cures Act, medical imaging exams and procedure reports are released immediately into your electronic medical record. You may view this report before your referring provider. If you have questions, please contact your health care provider. CLINICAL INFORMATION: 71-year-old with upper abdominal pain. TECHNIQUE: Contrast-enhanced CT of the abdomen and pelvis was obtained. Coronal and sagittal reformatted images were obtained. Contrast: 150 mL of Isovue-300 intravenous contrast was injected uneventfully prior to image acquisition. Radiation Dose Estimate (Total Exam DLP): 1190 mGy-cm. COMPARISON: None available. FINDINGS: Lower Chest: Lung bases: Mild bibasilar dependent atelectatic changes. No focal airspace opacities or pleural effusions. Heart/Pericardium: Cardiac pacer leads incompletely visualized. No pericardial effusion. Mild biatrial enlargement. Abdomen/Pelvis: Liver: Unremarkable. Gallbladder: Small stones in the neck measuring up to 3 mm. Spleen: Unremarkable. Adrenal glands: Unremarkable. Kidneys: Enhance symmetrically without hydronephrosis. 2 cm right lower pole cyst. Retroaortic left renal vein. Pancreas: Unremarkable. Lymph nodes: No retroperitoneal, mesenteric, inguinal, or pelvic adenopathy by CT criteria. Vascular: Infrarenal abdominal aortic aneurysm measuring 32 x 30 mm with small amount of mural thrombus. Bowel: No bowel obstruction. Colonic diverticulosis, no evidence for diverticulitis. Urinary bladder: Limited evaluation due to underdistention. No gross pathology. Reproductive structures: Enlarged prostate. Fat containing umbilical hernia with increased fat stranding which may suggest incarceration (series 2, image 103). Musculoskeletal: Visualized osseous structures demonstrate diffuse degenerative changes. IMPRESSION: 1. Small fat-containing umbilical hernia with increased fat stranding which may be indicative of strangulation. 2. Cholelithiasis. No evidence for acute cholecystitis. 3. Colonic diverticulosis, no evidence for diverticulitis. 4. Small infrarenal abdominal aortic aneurysm measuring 32 mm. 5. Enlarged prostate. Please note that all CT scans at this facility use dose modulation, iterative reconstruction, and/or weight-based dosing when appropriate to reduce radiation dose to as low as reasonably achievable. Dictated by Jaxson Tomlinson MD @ 07/08/2021 6:47:37 PM (Electronically Signed)
[2021-07-08] MEDS ORDERED: Alum Hydrox/Mag Hydrox/Simeth 15 ML, Lidocaine 2% 15 ML PO ONE ×2 (18:56)
[2021-07-08] MEDS ORDERED: Famotidine 20 MG Tab PO ONE (19:15)
== END 2021-07-08 19:45 | disposition home or self-care (01) ==
LOC: JP.ED 15:45
DX: K29.00 Acute gastritis without bleeding (principal); K59.01 Slow transit constipation; I11.0 Hypertensive heart disease with heart failure; I50.9 Heart failure, unspecified; E78.00 Pure hypercholesterolemia, unspecified; Z79.82 Long term (current) use of aspirin; Z79.01 Long term (current) use of anticoagulants; Z79.899 Other long term (current) drug therapy; Z72.0 Tobacco use; Z88.8 Allergy status to other drugs, medicaments and biological substances
CPT/HCPCS: 36415; 74177; 80053; 83690; 83735; 84484; 85025; 85379; 99284; A9270; J7030; Q9967

== ENCOUNTER 2021-09-07 14:40 | Emergency (ER) | payer OTHER ==
--- NOTE | 2021-09-07 15:18 | EDM.PDOC ---
ED HPI GENERAL MEDICAL PROBLEM - General Chief Complaint: Cardiovascular Problem Stated Complaint: MED[facility] Time Seen by Provider: 09/07/21 15:17 Source of Information: Reports: Patient, RN Notes Reviewed History Limitations: Reports: No Limitations - History of Present Illness INITIAL COMMENTS - FREE TEXT/NARRATIVE: Teo presents today for complaints of his defibrillator going off on him 6 times today [employer]GRAM [employer]. He states he was pushing snow with a shovel and it went off. He did one 20 foot pass, did not feel well, his defibrillator went off once and he went into his house. He sat down, continued to not feel well and his defibrillator went off 5 more times. He then called 911 to come into the emergency room. He reports taking his medication as prescribed. He denies nausea, vomiting, change in bowel/bladder or other concerns. - Related Data Allergies Allergy/AdvReac Type Severity Reaction Status Date / Time Tkmpygz-[id number]-DdG Reductase AdvReac Other Verified 09/07/21 15:14 Inhibitor [Mklzuym-Pwj-Rdu Reductase Inhibitor] Home Meds: Home Meds Amiodarone HCl [Pacerone] 100 mg PO DAILY 04/11/19 [History] Apixaban [Eliquis] 5 mg PO BID 04/11/19 [History] Aspirin 81 mg PO DAILY 04/11/19 [History] Cholecalciferol (Vitamin D3) [Vitamin D3] 1,000 unit PO DAILY 04/11/19 [History] Fish Oil/[place]-3 Fatty Acids [Fish Oil 1,000 MG] 1 gm PO DAILY 04/11/19 [History] Furosemide 80 mg PO DAILY 04/11/19 [History] Furosemide [Lasix] 20 mg PO BEDTIME 04/11/19 [History] Omeprazole 40 mg PO BID 04/11/19 [History] Sacubitril/Valsartan [Entresto 24 mg-26 mg Tablet] 1 tab PO BID 04/11/19 [History] Sertraline HCl 100 mg PO DAILY 04/11/19 [History] Spironolactone [Aldactone] 100 mg PO BID 04/11/19 [History] carvediloL [Carvedilol] 12.5 mg PO BID 04/11/19 [History] Famotidine 20 mg PO BEDTIME #30 tab 07/08/21 [Rx] Past Medical History HEENT History: Reports: Impaired Vision Cardiovascular History: Reports: Afib, Bypass, Heart Failure, High Cholesterol, Hypertension, Pacemaker, Stents Gastrointestinal History: Reports: GERD Musculoskeletal History: Reports: Osteoarthritis Psychiatric History: Reports: Depression, PTSD Endocrine/Metabolic History: Reports: Obesity/BMI 30+ Hematologic History: Reports: Anticoagulation Therapy - Past Surgical History Head Surgeries/Procedures: Reports: None HEENT Surgical History: Reports: Cataract Surgery Cardiovascular Surgical History: Reports: Coronary Artery Bypass, Coronary Artery Stent GI Surgical History: Reports: Appendectomy, Hernia Repair/Other Musculoskeletal Surgical History: Reports: None Dermatological Surgical History: Reports: None Social & Family History - Caffeine Use Caffeine Use: Reports: Coffee ED ROS GENERAL - Review of Systems Review Of Systems: See Below Constitutional: Reports: Malaise, Weakness HEENT: Reports: No Symptoms Respiratory: Reports: No Symptoms Cardiovascular: Reports: Other (internal defibrillator went of x 6 after shoveling snow). Denies: Chest Pain, Dyspnea on Exertion Endocrine: Reports: No Symptoms GI/Abdominal: Reports: No Symptoms : Reports: No Symptoms Musculoskeletal: Reports: No Symptoms Skin: Reports: No Symptoms Neurological: Reports: No Symptoms Psychiatric: Reports: No Symptoms Hematologic/Lymphatic: Reports: No Symptoms Immunologic: Reports: No Symptoms ED EXAM, GENERAL - Physical Exam Exam: See Below Exam Limited By: No Limitations General Appearance: Alert, WD/WN, Mild Distress Eye Exam: Bilateral Eye: Normal Inspection, PERRL Throat/Mouth: Normal Inspection, Normal Lips, Normal Teeth, Normal Gums, Normal Oropharynx, Normal Voice, No Airway Compromise Head: Atraumatic, Normocephalic Neck: Normal Inspection, Supple, Non-Tender, Full Range of Motion. No: Lymphadenopathy (R), Lymphadenopathy (L) Respiratory/Chest: No Respiratory Distress, Lungs Clear, No Accessory Muscle Use, Chest Non-Tender. No: Crackles, Rales, Rhonchi, Wheezing, Stridor, Accessory Muscle Use Cardiovascular: Normal Peripheral Pulses, Regular Rate, Rhythm (ventricular paced), No Edema, No Gallop, Other (Noted murmur) Peripheral Pulses: 3+: Dorsalis Pedis (L), Dorsalis Pedis (R), 4+: Radial (L), Radial (R) GI/Abdominal: Normal Bowel Sounds, Soft, Non-Tender, No Organomegaly, No Distention, No Mass. No: Guarding, Rigid, Rebound, Tender Back Exam: Normal Inspection, Full Range of Motion. No: CVA Tenderness (R), CVA Tenderness (L) Extremities: Normal Inspection, Normal Range of Motion, Non-Tender, No Pedal Edema, Normal Capillary Refill Neurological: Alert, Oriented, CN II-XII Intact, Normal Cognition, Normal Gait, Normal Reflexes, No Motor/Sensory Deficits Psychiatric: Normal Affect, Normal Mood Skin Exam: Warm, Dry, Intact, Normal Color, No Rash Lymphatic: No Adenopathy #1 Interpretation EKG Date: 09/07/21 (1507) Rhythm: Other Rate (Beats/Min): 87 (Ventricular paced rhythm) [place]: Normal P-Wave: Variable QRS: Wide ST-T: Normal QT: Normal (444) EKG Interpretation Comments: Ventricular paced rhythm Course - Vital Signs Last Recorded V/S: Last Vital Signs Temp 36.7 C 09/07/21 15:30 Pulse 67 09/07/21 20:11 Resp 18 09/07/21 20:11 BP 130/57 L 09/07/21 20:11 Pulse Ox 98 09/07/21 20:11 - Orders/Labs/Meds Orders: Active Orders 24 hr Category Date Time Status Saline Lock Insert [OM.PC] Routine Oth 09/07/21 18:24 Ordered EKG 12 Lead [EK] Routine Ther 09/07/21 15:12 Ordered Labs: Laboratory Tests 09/07/21 09/07/21 09/07/21 Range/Units 15:21 15:21 15:21 WBC 8.2 (4.5-11.0) K/uL RBC 4.18 L (4.30-5.90) M/uL Hgb 12.5 (12.0-15.0) g/dL Hct 37.4 L (40.0-54.0) % MCV 90 (80-98) fL MCH 30 (27-31) pg MCHC 33 (32-36) % Plt Count 155 (150-400) K/uL Neut % (Auto) 74.6 H (36-66) % Lymph % (Auto) 13.4 L (24-44) % [place] % (Auto) 8.3 H (2-6) % Eos % (Auto) 3.1 (2-4) % Baso % (Auto) 0.6 (0-1) % PT 10.2 (9.2-10.6) sec INR 1.0 APTT 24.6 (21.4-31.8) sec Sodium 140 (140-148) mmol/L Potassium 3.4 L (3.6-5.2) mmol/L Chloride 102 (100-108) mmol/L Carbon Dioxide 26 (21-32) mmol/L Anion Gap 15.4 H (5.0-14.0) mmol/L BUN 15 (7-18) mg/dL Creatinine 1.5 H (0.8-1.3) mg/dL Est Cr Clr Drug Dosing 43.86 mL/min Estimated GFR (MDRD) 46 L (>60) Glucose 117 H (74-106) mg/dL Calcium 8.8 (8.5-10.1) mg/dL Magnesium 2.1 (1.8-2.4) mg/dL Troponin I 0.992 H* (0.000-0.056) ng/mL NT-Pro-B Natriuret Pep (5-125) pg/mL SARS CoV-2 RNA Rapid BRAD 09/07/21 09/07/21 09/07/21 Range/Units 16:34 18:18 18:51 WBC (4.5-11.0) K/uL RBC (4.30-5.90) M/uL Hgb (12.0-15.0) g/dL Hct (40.0-54.0) % MCV (80-98) fL MCH (27-31) pg MCHC (32-36) % Plt Count (150-400) K/uL Neut % (Auto) (36-66) % Lymph % (Auto) (24-44) % [place] % (Auto) (2-6) % Eos % (Auto) (2-4) % Baso % (Auto) (0-1) % PT (9.2-10.6) sec INR APTT (21.4-31.8) sec Sodium (140-148) mmol/L Potassium (3.6-5.2) mmol/L Chloride (100-108) mmol/L Carbon Dioxide (21-32) mmol/L Anion Gap (5.0-14.0) mmol/L BUN (7-18) mg/dL Creatinine (0.8-1.3) mg/dL Est Cr Clr Drug Dosing mL/min Estimated GFR (MDRD) (>60) Glucose (74-106) mg/dL Calcium (8.5-10.1) mg/dL Magnesium (1.8-2.4) mg/dL Troponin I 5.924 H* (0.000-0.056) ng/mL NT-Pro-B Natriuret Pep 1648 H (5-125) pg/mL SARS CoV-2 RNA Rapid BRAD Negative Noted elevated troponin, BNP. Patient with probable arrhythmia causing firing of internal defibrillator x 6, at risk for V-tach storm with a history of [place], CABG, cardiac stents, EF 20-25%, ongoing daily use of tobacco, CHF in need of higher level of care, cardiology and ongoing work-up. We will transfer patient to nearest facility. ASA 324mg and nitro SL x 1 provided to patient per EMS. He has been pain free upon arrival to the emergency room. Dr. Mitchell notified of patient, lab work and status, he is in agreement with plan. [facility] system notified. They advise transfer to tertiary facility with cardiology services. Patient in agreement with plan. Meds: Medications Discontinued Medications Generic Name Dose Route Start Last Admin Trade Name Freq PRN Reason Stop Dose Admin Aspirin 324 mg 09/07/21 18:50 09/07/21 19:55 Aspirin 81 Mg Tab.Chew PO 09/07/21 18:51 Not Given ONETIME ONE Heparin Sodium (Porcine) 4,000 units 09/07/21 20:33 09/07/21 20:38 Heparin Sodium 5,000 Units/Ml Vial IVPUSH 09/07/21 20:34 4,000 units ONETIME ONE Administration Heparin Sodium/Dextrose 25,000 units in 500 mls @ 25.583 mls/hr 09/07/21 19:00 09/07/21 19:20 Heparin 25,000 Units In D5w 500 Ml IV 9.38 units/kg/hr TITRATE HALLE 20 mls/hr Administration Protocol 12 UNITS/KG/HR Sodium Chloride 10 ml 09/07/21 18:24 09/07/21 18:26 Sodium Chloride 0.9% 10 Ml Syringe FLUSH 10 ml ASDIRECTED PRN Administration Keep Vein Open - Re-Assessments/Exams Free Text/Narrative Re-Assessment/Exam: 09/07/21 16:15 Patient lab work reviewed with patient, I will contact the [facility] and discuss. Patient in agreement with plan. No further defibrillation since last at his home today. He denies pain, palpitations or SOB. 09/07/21 16:23 [facility] contacted, we were advised to repeat troponin 3 hours after initial one. Order placed, we will wait for [facility] hospitalist to call us back. Contacted [facility], [facility], [facility], [facility], [facility], [facility] [place], they have no beds available to accept patient. Message left with [facility] and [facility]. 09/07/21 18:55 [facility] will accept patient. Dr. Grace accepts patient for transfer. He was informed 2nd troponin 5.924, he advises heparin bolus and drip. Patient notified, he is in agreement with plan. EMS notified, delay in transfer due to all rigs in service on transports. Flight per helicopter unable to fly. Patient not currently unstable - no need for fixed wing. Notified Dr. Zambrano - she is in agreement with transport per EMS. Patient notified, he is in agreement with plan. Patient denies pain, palpitations or SOB. 09/07/21 20:34 EMS arrived for transport of patient. Patient transfer to [facility] [place]. Departure - Departure Time of Disposition: 20:35 Disposition: DC/Tfer to Acute Hospital 02 Reason for Transfer *Q: Other (cardiac arrhythmia triggering internal defibrillator with 6 shocks, elevated troponin) Condition: Fair Clinical Impression: Arrhythmia, Elevated troponin Referrals: PCP,None [Primary Care Provider] - Forms: ED Department Discharge Sepsis Event Note (ED) - Focused Exam Vital Signs: Vital Signs Temp Pulse Resp BP Pulse Ox 09/07/21 20:11 67 18 130/57 L 98 09/07/21 19:12 75 20 127/58 L 98 09/07/21 18:33 80 21 H 135/72 97 09/07/21 17:10 50 L 127/76 96 09/07/21 16:20 84 19 140/73 97 09/07/21 15:30 36.7 C 88 16 107/56 L 97 09/07/21 15:12 36.7 C 88 16 107/56 L 97 - My Orders Last 24 Hours: My Active Orders 09/07/21 18:24 Saline Lock Insert [OM.PC] Routine - Assessment/Plan Last 24 Hours: My Active Orders 09/07/21 18:24 Saline Lock Insert [OM.PC] Routine Assessment:: Elevated troponin Elevated BNP Arrhythmia causing firing of internal defibrillator x 6, at risk for V-tach storm with a history of [place], CABG, cardiac stents, EF 20-25%, ongoing daily use of tobacco, CHF in need of higher level of care, cardiology and ongoing work-up
[2021-09-07] MEDS ORDERED: Sodium Chloride 0.9% 10 ML Syringe FLUSH PRN (18:24)
[2021-09-07] MEDS ORDERED: Aspirin 81 MG Tab.Chew PO ONE (18:50)
[2021-09-07] MEDS ORDERED: Heparin Sodium/D5W 25,000 UNITS/500 ML BAG IV SCH (19:00)
[2021-09-07] MEDS ORDERED: Heparin Sodium 5,000 Units/ML Vial IVPUSH ONE (20:33)
== END 2021-09-07 20:42 ==
LOC: JP.ED 14:40
DX: I49.9 Cardiac arrhythmia, unspecified (principal); R79.89 Other specified abnormal findings of blood chemistry; I11.0 Hypertensive heart disease with heart failure; I50.9 Heart failure, unspecified; I48.91 Unspecified atrial fibrillation; E78.00 Pure hypercholesterolemia, unspecified; M19.90 Unspecified osteoarthritis, unspecified site; E66.9 Obesity, unspecified; Z68.30 Body mass index [BMI] 30.0-30.9, adult; Z95.1 Presence of aortocoronary bypass graft; Z79.01 Long term (current) use of anticoagulants; Z79.82 Long term (current) use of aspirin; Z88.8 Allergy status to other drugs, medicaments and biological substances; Z20.822 Contact with and (suspected) exposure to COVID-19; Z79.899 Other long term (current) drug therapy
CPT/HCPCS: 36415; 80048; 83735; 83880; 84484; 85025; 85610; 85730; 87635; 93005; 96365; 99285; J1644; U0002

== ENCOUNTER 2021-11-05 10:00 | Emergency (ER) | payer OTHER | END 2021-11-05 11:39 | disposition home or self-care (01) | LOC: JP.ED 10:00 | DX: R55 Syncope and collapse (principal); I48.91 Unspecified atrial fibrillation; K21.9 Gastro-esophageal reflux disease without esophagitis; I11.0 Hypertensive heart disease with heart failure; I50.9 Heart failure, unspecified; E78.00 Pure hypercholesterolemia, unspecified; Z95.1 Presence of aortocoronary bypass graft; E66.9 Obesity, unspecified; Z95.5 Presence of coronary angioplasty implant and graft; Z95.810 Presence of automatic (implantable) cardiac defibrillator; Z72.0 Tobacco use; Z91.048 Other nonmedicinal substance allergy status; Z79.899 Other long term (current) drug therapy; Z79.01 Long term (current) use of anticoagulants; Z79.82 Long term (current) use of aspirin; Z68.36 Body mass index [BMI] 36.0-36.9, adult | CPT/HCPCS: 36415; 80048; 84484; 85025; 93005; 99285-25 ==

== ENCOUNTER 2022-03-16 16:21 | Emergency (ER) | payer OTHER ==
[2022-03-16 17:33] LABS: TROPONIN I HIGH SENSITIVITY 23.5 pg/mL (<=60.3)
== END 2022-03-16 18:15 | disposition home or self-care (01) ==
LOC: JP.ED 16:21
DX: T82.897A Other specified complication of cardiac prosthetic devices, implants and grafts, initial encounter (principal); R53.83 Other fatigue; I48.91 Unspecified atrial fibrillation; I11.0 Hypertensive heart disease with heart failure; I50.9 Heart failure, unspecified; E78.00 Pure hypercholesterolemia, unspecified; K21.9 Gastro-esophageal reflux disease without esophagitis; E66.9 Obesity, unspecified; Z68.35 Body mass index [BMI] 35.0-35.9, adult; Z95.0 Presence of cardiac pacemaker; Z88.8 Allergy status to other drugs, medicaments and biological substances; Z79.01 Long term (current) use of anticoagulants; Z79.82 Long term (current) use of aspirin; Z79.899 Other long term (current) drug therapy
CPT/HCPCS: 36415; 80053; 84484; 85025; 99283; 99284

== ENCOUNTER 2022-07-22 11:58 | Emergency (ER) | payer OTHER ==
[2022-07-22 12:56] LABS: ESTIMATED GFR 37 mL/min (>60); TROPONIN I HIGH SENSITIVITY 17.9 pg/mL (<=60.3)
[2022-07-22] MEDS: Sodium Chloride 0.9% 1,000 ML IV SCH (15:28)
[2022-07-22] MEDS: Sodium Chloride 0.9% 100 ML IV SCH (15:59)
[2022-07-22] MEDS: Iopamidol 612 MG/ML 150 ML Bottle IV PRN (15:59)
== END 2022-07-22 17:50 | disposition home or self-care (01) ==
LOC: JP.ED 11:58
DX: R42 Dizziness and giddiness (principal); E66.9 Obesity, unspecified; Z68.33 Body mass index [BMI] 33.0-33.9, adult; Z88.6 Allergy status to analgesic agent; Z79.899 Other long term (current) drug therapy; Z79.01 Long term (current) use of anticoagulants; Z79.82 Long term (current) use of aspirin; Z90.49 Acquired absence of other specified parts of digestive tract
CPT/HCPCS: 36415; 71045; 74177; 80053; 81001; 83735; 83880; 84484; 85025; 93005; 96360; 96361; 99285; J3490; J7030; Q9967

== ENCOUNTER 2022-08-07 13:03 | Emergency (ER) | payer OTHER ==
[2022-08-07 13:56] LABS: ESTIMATED GFR 49 mL/min (>60); TROPONIN I HIGH SENSITIVITY 19.4 pg/mL (<=60.3)
== END 2022-08-07 20:40 | disposition home or self-care (01) ==
LOC: JP.ED 13:03
DX: I25.9 Chronic ischemic heart disease, unspecified (principal); Z95.810 Presence of automatic (implantable) cardiac defibrillator
CPT/HCPCS: 36415; 80048; 82803; 83735; 83880; 84443; 84484; 85027; 93005; 99285

== ENCOUNTER 2022-12-05 04:29 | Emergency (ER) | payer OTHER, MEDICARE ==
[2022-12-05] MEDS ORDERED: Sodium Chloride 0.9% 10 ML Syringe FLUSH PRN (04:41)
[2022-12-05] MEDS ORDERED: Dexamethasone 4 MG/ML SDV IVPUSH ONE (04:41)
[2022-12-05 05:41] LABS: ESTIMATED GFR 49 mL/min (>60)
[2022-12-05 05:47] LABS: CORONAVIRUS COVID-19 NAA POSITIVE (NEGATIVE)
== END 2022-12-05 06:01 | disposition home or self-care (01) ==
LOC: JP.ED 04:29
DX: U07.1 COVID-19 (principal); I48.91 Unspecified atrial fibrillation; I11.0 Hypertensive heart disease with heart failure; I50.9 Heart failure, unspecified; E78.00 Pure hypercholesterolemia, unspecified; I10 Essential (primary) hypertension; K21.9 Gastro-esophageal reflux disease without esophagitis; E66.9 Obesity, unspecified; Z68.34 Body mass index [BMI] 34.0-34.9, adult; Z95.0 Presence of cardiac pacemaker; Z88.8 Allergy status to other drugs, medicaments and biological substances; Z79.01 Long term (current) use of anticoagulants; Z79.82 Long term (current) use of aspirin; Z79.899 Other long term (current) drug therapy
CPT/HCPCS: 0241U; 36415; 71045; 80053; 82728; 83615; 85025; 85379; 86140; 96374; 99284; J1100; J3490; 99282

== ENCOUNTER 2023-01-12 15:34 | Emergency (ER) | payer MEDICARE, OTHER ==
[2023-01-12] MEDS ORDERED: Sodium Chloride 0.9% 1,000 ML IV SCH (17:15)
[2023-01-12] MEDS ORDERED: Metoprolol Tartrate 50 MG Tab PO ONE (19:00)
== END 2023-01-12 20:00 | disposition home or self-care (01) ==
LOC: JP.ED 15:34
DX: R00.2 Palpitations (principal); I48.91 Unspecified atrial fibrillation; I11.0 Hypertensive heart disease with heart failure; I50.9 Heart failure, unspecified; K21.9 Gastro-esophageal reflux disease without esophagitis; M19.90 Unspecified osteoarthritis, unspecified site; E66.9 Obesity, unspecified; Z68.35 Body mass index [BMI] 35.0-35.9, adult; Z88.8 Allergy status to other drugs, medicaments and biological substances; Z79.82 Long term (current) use of aspirin; Z79.899 Other long term (current) drug therapy; Z79.01 Long term (current) use of anticoagulants
CPT/HCPCS: 36415; 71046; 81001; 82150; 83690; 83880; 84443; 86140; 96360; 96361; 99285; A9270; J7030